=== PATIENT | female | born 1935 | race Caucasian/White ===

== ENCOUNTER 2017-03-15 19:20 | Inpatient (IN) | payer MEDICARE, OTHER ==
--- NOTE | ~2017-03-15 | DS ---
Unit #: [id number] #: [id number] Patient: WILVER BINGHAM [id number] [address] [address] [id number] I MR#: [id number] NAME: WILVER BINGHAM ROOM: 467 Age: 81 Sex: F Admission Date: 03/16/2017 : 1935 Discharge Date: Attending Physician: Antonieta Goel M.D. Primary Care Physician: No Primary Care Physician DISCHARGE SUMMARY DISCHARGE DIAGNOSES 1. Right foot ulcer, no osteomyelitis. 2. Severe peripheral vascular disease with right ischemic foot. 3. Urinary tract infection with Proteus. 4. Alzheimer dementia. 5. Diabetes mellitus type 2, controlled. 6. Hypothyroidism. 7. Chronic obstructive pulmonary disease, stable. 8. On chronic anticoagulation, Eliquis. 9. History of transient ischemic attacks. 10. (1) artery disease, Doppler showing 50% to 60% stenosis on the right side and less than 50% stenosis on the left carotid. 11. Stress test negative in February 2015. 12. History of previous right lower extremity bypass procedure. 13. Right hip nailing. CONSULTATIONS 1. Dr. North. 2. Dr. Palafox. 3. Dr. Mackenzie. PROCEDURES None. DIAGNOSTIC STUDIES LABORATORY: Sodium 142, potassium 3.7, and creatinine 1. WBC 7.9, hemoglobin 12.9, and platelets 227. Blood cultures negative. C reactive protein 0.9. Sedimentation rate 33. Urine cultures are growing Proteus mirabilis. Lactic acid 0.8. IMAGING: CT of right foot without contrast shows no bony destruction. Soft tissue wound along the medial margin of the great toe. No underlying soft tissue gas. No edema. Old healed fracture of the midshaft of fourth metatarsal present. Bilateral ankle brachial indices ultrasound shows severe peripheral vascular disease on the right lower extremity. ALLERGIES Aricept. DISCHARGE MEDICATIONS 1. Lactulose 20 g p.o. at bedtime. 2. Neurontin 300 at bedtime. Unit #: [id number] #: [id number] Patient: WILVER BINGHAM 3. Eliquis 2.5 mg p.o. b.i.d. 4. Zoloft 25 at bedtime. 5. Glucagon 1 mg IV p.r.n. hypoglycemia. 6. Norvasc 10 mg daily. 7. Milk of magnesia 30 mL p.r.n. constipation. 8. Keflex 500 p.o. 4 times daily. Stop date 03/29/2017. 9. Linzess 145 mcg p.o. daily. 10. Lipitor 40 daily. 11. Levemir 17 units subcu. b.i.d. 12. NovoLog low dose sliding scale a.c. and h.s. 13. NovoLog 7 units subcu. 3 times daily before meals. 14. Alendronate 70 mg p.o. weekly. 15. Florastor 250 p.o. b.i.d. 16. Doxycycline 100 mg p.o. b.i.d. Stop date 03/29/2017. 17. Levothyroxine 275 mcg p.o. daily. 18. Vitamin D2 50,000 units p.o. weekly. HOSPITALIZATION COURSE This is an 81-year-old admitted because of right foot wound. Right foot ulcer: No osteomyelitis with severe peripheral vascular disease. Patient was initially started on IV vancomycin and Zosyn. CT of the right foot without contrast shows no bony involvement. Blood cultures negative. Patient seen by infectious disease, orthopedics, and vascular. Infectious disease doctor recommended p.o. antibiotics. No osteomyelitis. Patient will be continued on Keflex and Doxycycline. Stop date 03/29/2017. Severe peripheral vascular disease: Patient is seen by Dr. North. According to him, patient needs to continue with conservative management. Patient is not a candidate for amputation. Patient will follow Dr. North as an outpatient. Alzheimer dementia with confusion: Continue with supportive care. Diabetes mellitus with peripheral neuropathy: Continue with Levemir. Patient is on Neurontin. Hypertension: Well controlled. History of TIAs: Continue with Eliquis. (1) discussed with Dr. Palafox and Dr. Mackenzie. Dr. Mackenzie is okay for the patient to continue with p.o. antibiotics. DISCHARGE INSTRUCTIONS 1. Patient will be discharged to rehab today. 2. Follow up with Dr. Palafox in two weeks' time. 3. Follow up with Dr. North in two weeks' time. Please note that the patient is not a candidate for amputation. Also, please note that patient could not lie straight for MRI to rule out osteomyelitis so CAT scan has been done. Discharge time taken is 32 minutes. Dictated by... Unit #: [id number] #: [id number] Patient: ZACHERYWILVER M.D. KJ/pc TD: 03/22/2017 12:32 JOB #: [id number] DISCHARGE SUMMARY Page 1 of 1 X Antonieta Goel MD X DISCHARGE SUMMARY
--- NOTE | ~2017-03-15 | US136 ---
[facility] A Service of [facility] & [facility] RADIOLOGY TEXT RESULTS PATIENT: WILVER BINGHAM LOCATION: [place] [address]- : 34 UNIT #: [id number] AGE: [address]: Antonieta Goel MD SEX: F ORDER DR: [id number] [facility] [address] [facility]. [place], [place] [address] [id number] I MR#: [id number] Acc #: [id number] NAME: WILVER BINGHAM : 1935 SEX: F STUDY DATE/TIME: 03/16/2017 9:13 UNIT: [facility] ROOM: [facility] STUDY DESCRIPTION: US U/L Ext Art Study Ltd Bil Attending Physician: Antonieta Goel M.D. Ordering Physician: Kolton North M.D. Primary Care Physician: Leila Omalley A.P.R.N. MEDICAL IMAGING REPORT This report is preliminary unless electronic signature is present EXAM Bilateral ankle-brachial indices HISTORY Peripheral vascular disease, absent pulses. FINDINGS Waveforms are monophasic and blunted at the ankle levels bilaterally. The right brachial pressure is 169, left brachial pressure is 149. On the right side, dorsalis pedis is 76, posterior tibial is 65, great toe is 32 for a right ankle-brachial index of 0.45. On the left side, posterior tibial pressure is 87, dorsalis pedis 91, great toe is 40 for a left ankle-brachial index of 0.54. IMPRESSION Severe peripheral vascular disease is seen in the right lower extremity with ankle-brachial index of 0.45. Vtjfgiot-yj-ropopv peripheral vascular disease is seen in the left lower extremity with ankle-brachial index of 0.54. Dictated by... Kolton North M.D. THIS IS AN ELECTRONICALLY VERIFIED REPORT Kolton North M.D. at 03/21/2017 4:08 PM /pineda TD: 03/16/2017 23:09 JOB #: [id number] [facility] A Service of [facility] & [facility] RADIOLOGY TEXT RESULTS PATIENT: WILVER BINGHAM LOCATION: [place] [address] : 34 UNIT #: [id number] AGE: [address]: Antonieta Goel MD SEX: F ORDER DR: MEDICAL IMAGING REPORT Page 1 of 1 COPY
--- NOTE | ~2017-03-15 | EKG ---
PATIENT: WILVER BINGHAM UNIT #: [id number] Ventricular Rate: 78 BPM Atrial Rate: 78 BPM P-R Interval: 124 ms QRS Duration: 74 ms Q-T Interval: 404 ms QTC Calculation(Bezet): 460 ms P [place]: 81 degrees Calculated R [place]: 60 degrees Calculated T [place]: 154 degrees Diagnosis Line: Normal sinus rhythm Diagnosis Line: ST and T wave abnormality, consider anterolateral Diagnosis Line: ischemia Diagnosis Line: Abnormal ECG Diagnosis Line: When compared with ECG of 20-JUL-2015 05:48, Diagnosis Line: Nonspecific T wave abnormality, improved in Diagnosis Line: Inferior leads Diagnosis Line: Confirmed by EVA DANIEL MD ([id number]) on Diagnosis Line: 03/18/2017 9:52:33 AM INTERPRETING : JOHNY
--- NOTE | ~2017-03-15 | CO ---
Unit #: [id number] #: [id number] Patient: WILVER BINGHAM [id number] [address] [place], [place] [address] [id number] Jenniffer MR#: [id number] NAME: WILVER BINGHAM. ROOM: 467 Age: 81 Sex: F Admission Date: 03/16/2017 : 1935 Attending Physician: Antonieta Goel M.D. Primary Care Physician: Primary Care Physician No CONSULTATION REPORT REQUESTING PHYSICIAN Dr. Goel. REASON FOR CONSULTATION Antibiotic recommendation for possible osteomyelitis of the right great toe in the setting of severe peripheral vascular disease, her amputation is being refused by the family. HISTORY OF PRESENT ILLNESS This is an 81-year-old white female with advanced dementia, severe peripheral vascular disease, who was admitted with a necrotic wound on the right foot. She lives in a care home and the wound appears to be chronic, it is not covered with an eschar. She underwent vascular evaluation, which showed ALEJANDRO of 0.45. Amputation was recommended, but both Surgery and family are hesitant to do amputation because of severe peripheral vascular disease and present medical status. No imaging studies have been performed to document presence of osteomyelitis. I was asked to see for antibiotic recommendations since surgery is not a possibility. Incidentally, noted to have positive urine culture without any symptoms and is currently on Zosyn and vancomycin to cover for both UTI and for possible osteomyelitis. The patient is pleasantly confused. She is not in any distress. She does not appear to have any fever or chills. No signs of systemic sepsis are noted. PAST MEDICAL HISTORY Severe peripheral vascular disease, recent right lower extremity bypass surgery with no apparent benefit, history of hypertension, hyperlipidemia, peripheral neuropathy, diabetes, hypothyroidism, previous TIA, COPD, carotid artery disease, dementia, right hip nailing, back surgery, and lithotripsy. ALLERGIES Aricept. MEDICATIONS residential medications; Fosamax, Synthroid, Linzess, NovoLog, vitamin, Eliquis, Zoloft, lactulose, Lipitor, Norvasc, Neurontin, milk of magnesium, glucagon, and Toujeo. In the hospital, she is on vancomycin, Saccharomyces boulardii, Norvasc, Lipitor, lactulose, Zoloft, vitamin D, Linzess, Neurontin, levothyroxine, NovoLog, Levemir, Zosyn, vancomycin, and milk of magnesia. PERSONAL HISTORY Unit #: [id number] #: [id number] Patient: WILVER BINGHAM The patient lives in a care home. No history of alcohol, drug, or tobacco abuse at the present time. Although, there is a history of smoking in the past. SYSTEMIC REVIEW Unable to obtain. Chart was reviewed. Discussions were held with the nursing staff and Dr. Goel. Pertinent findings are listed in history of present illness. PHYSICAL EXAMINATION GENERAL: Reveals a pleasantly confused, elderly white female, who is awake and alert, in no acute distress. VITAL SIGNS: Stable. Temperature is 98, pulse 90, respirations 16, blood pressure 160/83. No fever was documented throughout this admission. HEENT: Her oral hygiene is poor. Several teeth are missing. NECK: Supple. She looks somewhat pale. LUNGS: Clear to percussion and auscultation. HEART: Sounds are normal. There are no murmurs. ABDOMEN: Obese, soft, and nontender. There is no organomegaly or ascites. Bowel sounds normal. NEUROLOGIC: She is intact, able to move all 4 extremities, but she is mentally confused due to advanced dementia. EXTREMITIES: Lower extremities examination reveals no palpable pulses. There is an eschar on the medial aspect of the right great toe, which covers most of the great toe medially. There is evidence of neuropathy. Absent focus. There is no drainage noted. Some erythema on the great toe was noted as well. DIAGNOSTIC STUDIES LABORATORY RESULTS: Urine culture, Proteus with new evidence of pyuria, but the patient has no symptoms of UTI. BMP is unremarkable. White count is 9.7, hemoglobin 13.4, and platelets 187. Differential count is normal. Blood cultures negative. Arterial study of the right lower extremity shows severe peripheral vascular disease with ALEJANDRO of 0.45 on the right and 0.54 on the left. X-ray of the foot shows soft tissue ulcer seen in medial aspect of the right great toe at the level of the interphalangeal joint. Small amount of cortical irregularity seen at the distal aspect of the proximal phalanx, but no bone destruction. There is evidence of bone demineralization, some soft tissue swelling. IMPRESSION Main issue is ischemic ulcer on the right foot due to severe peripheral vascular disease with suspicion for underlying osteomyelitis. Osteomyelitis is not confirmed, it is just being presumed, and ID is being asked to recommend antibiotics for osteomyelitis. At this time, the risk of antibiotic therapy should be carefully get against possible benefit in the view of severe peripheral vascular disease. Her osteomyelitis has not been confirmed. Treating her with 6 to 8 weeks of IV antibiotics can have more risks than benefits. Moreover with severe peripheral vascular disease, the osteomyelitis cure may not be possible. RECOMMENDATIONS I will recommend to do a CT of the right foot without contrast to look for any evidence of obvious osteomyelitis along with inflammatory markers with CRP and sedimentation rate and make the further plans. Dictated by... Unit #: [id number] #: [id number] Patient: WILVER BINGHAM M.D. TM/eva TD: 03/21/2017 14:25 JOB #: [id number] CONSULTATION REPORT Page 1 of 1 X Jb Mackenzie MD CONSULTATION REPORT
--- NOTE | ~2017-03-15 | CO ---
Unit #: [id number] #: [id number] Patient: WILVER BINGHAM [id number] [address] [place], [place] [address] [id number] I MR#: [id number] NAME: WILVER BINGHAM ROOM: 467 Age: 81 Sex: F Admission Date: 03/16/2017 : 1935 Attending Physician: Antonieta Goel M.D. Primary Care Physician: Leila Omalley A.P.R.N. Consultation Date: 03/16/2017 CONSULTATION REPORT CHIEF COMPLAINT Necrotic wound over her right hallux. HISTORY OF PRESENT ILLNESS An 81-year-old white female with history of dementia, peripheral vascular disease, and adult onset diabetes mellitus, presents with a necrotic wound of her right hallux. The patient is a resident at [facility], where it was noticed that her ulcer had increased in size, became more painful and has had increased drainage. She was admitted into the emergency room last night and x-ray revealed right foot soft tissue swelling and cortical irregularity of her first digit. She is also being treated for UTI with Rocephin. Vascular has seen and has ordered new ABIs as her most recent one from 2016 and revealed 0.39 right and 0.52 left. Vascular is also treating her cellulitis of her right foot. PAST MEDICAL HISTORY Peripheral vascular disease, status post right lower extremity bypass surgery at [facility]; hypertension; hyperlipidemia; adult onset diabetes mellitus with peripheral neuropathy; hypothyroidism; previous TIAs; COPD; carotid artery disease; dementia; Cardiolite stress test in 2014; previous right lower extremity bypass procedure; right hip nailing; back surgery; and lithotripsy. ALLERGIES Aricept. MEDICATIONS [facility] medications; Fosamax 70 mg daily, Synthroid 0.2 mg daily, Linzess 145 mcg daily, NovoLog 7 units t.i.d. with meals, vitamin D2 50,000 units each week, Eliquis 2.5 mg b.i.d., Zoloft 25 mg q.h.s., lactulose 30 mL q.h.s. and p.r.n., Lipitor 40 mg q.h.s., Norvasc 10 mg daily, Neurontin 300 mg q.h.s. p.r.n., milk of magnesia, Glucagon, Toujeo 34 units subcu daily. FAMILY HISTORY Noncontributory. SOCIAL HISTORY Lives at [facility] and under the care of Dr. Berman. Previous tobacco smoker, no alcohol use. REVIEW OF SYSTEMS Unable to obtain today. Unit #: [id number] #: [id number] Patient: WILVER BINGHAM PHYSICAL EXAMINATION GENERAL: No acute distress, not oriented. VITAL SIGNS: Within normal limits. HEART: Regular rate and rhythm. LUNGS: Nonlabored breathing. MUSCULOSKELETAL: Right lower extremity; weakly palpable dorsalis pedis and posterior tibialis pulses, necrotic left hallux wound with blister, no drainage currently, wound measures 0.5 x 1 cm, ischemic areas of fourth and fifth toe is present. Foot warm to touch and erythematous, neurovascularly intact. NEUROLOGIC: Cranial nerves intact. PSYCHIATRIC: Mood and affect normal. DIAGNOSTIC STUDIES IMAGING STUDIES: X-ray of the right foot; cortical irregularity at the distal aspect of proximal phalanx, clinical evidence of cellulitis. LABORATORY RESULTS: BMP within normal limits. Glucose of 104, lactic acid 0.8. CBC within normal limits. PT of 10.5, INR of 1.0, PTT 29.6. UA: Leukocyte esterase 3+, protein 2+, blood 2+. ASSESSMENT AND PLAN An 81-year-old white female with necrotic right hallux wound. Previous x-ray of the right foot revealed clinical evidence suggestive of osteomyelitis; we will order an MRI without contrast of her right foot today. ABIs already ordered per Vascular. To continue all antibiotic treatment. We will continue to follow and address further treatment, pending ABIs and MRI. Dictated by... Jenifer Pierre PA-C for Aida Luong/eva TD: 03/17/2017 06:07 JOB #: [id number] CONSULTATION REPORT Page 1 of 1 X JENIFER PIERRE X CONSULTATION REPORT
--- NOTE | ~2017-03-15 | CT95 ---
[facility] A Service of [facility] & [facility] RADIOLOGY TEXT RESULTS PATIENT: WILVER BINGHAM LOCATION: [facility] 46-01 : 34 UNIT #: [id number] AGE: [address]: Antonieta Goel MD SEX: F ORDER DR: [id number] [place] [id number] [place], [place] [address] [id number] I MR#: [id number] Acc #: [id number] NAME: WILVER BINGHAM : 1935 SEX: F STUDY DATE/TIME: 03/21/2017 18:47 UNIT: [facility] ROOM: [facility] STUDY DESCRIPTION: CT Lower Ext Rt Wo Cont Attending Physician: Antonieta Goel M.D. Ordering Physician: Jb Mackenzie M.D. Primary Care Physician: Primary Care Physician No MEDICAL IMAGING REPORT This report is preliminary unless electronic signature is present EXAM CT right foot without contrast HISTORY Redness and pain in foot and swelling for approximately [address] exam was performed with one or more of the following radiation dose reduction techniques: automatic exposure control, adjustment of mA and/or kV according to patient size, and iterative reconstruction. FINDINGS CT right foot without contrast demonstrates soft tissue wound along the medial margin of the distal great toe at the level of the IP joint. Underlying soft tissue thickening, likely edema or inflammation. No underlying bone destruction. No soft tissue gas. No drainable fluid collection is identified. Generalized demineralization. Mild degenerative changes in the IP joint of the great toe and at the first MTP joint. Old healed fracture midshaft fourth metatarsal. No acute fracture. Small posterior and plantar calcaneal spurs. IMPRESSION 1. No bone destruction is identified. No fracture. 2. Soft tissue wound along the medial margin of the great toe at the level of the IP joint. No underlying soft tissue gas or fluid collection. However, there is soft tissue thickening along the medial margin of the great toe which could be due to edema or cellulitis. 3. Old healed fracture of the midshaft of the fourth metatarsal. 4. Mild degenerative changes. Generalized demineralization. Dictated by... [facility] A Service of [facility] & [facility] RADIOLOGY TEXT RESULTS PATIENT: WILVER BINGHAM LOCATION: [place] [address]01 : 34 UNIT #: [id number] AGE: [address]: Antonieta Goel MD SEX: F ORDER DR: Lorenzo Whitman M.D. THIS IS AN ELECTRONICALLY VERIFIED REPORT Lorenzo Whitman M.D. at 03/22/2017 5:29 PM SUSY/noel TD: 03/22/2017 01:38 JOB #: [id number] MEDICAL IMAGING REPORT Page 1 of 1 COPY
--- NOTE | ~2017-03-15 | CO ---
Unit #: [id number] #: [id number] Patient: WILVER BINGHAM [id number] [address] [place], [place] [address] [id number] I MR#: [id number] NAME: WILVER BINGHAM ROOM: 467 Age: 81 Sex: F Admission Date: 03/16/2017 : 1935 Attending Physician: Antonieta Goel M.D. Primary Care Physician: Leila Omalley A.P.R.N. Consultation Date: 03/16/2017 CONSULTATION REPORT REASON FOR CONSULTATION Infection and wound and peripheral vascular disease, right lower extremity. HISTORY This is an 81-year-old female admitted [facility] with a history of worsening wound on the right foot. No history was available yesterday when patient was initially seen. Subsequently, I have spoken to the patient's liojbbla-ej-oor. Patient has had right femoral to anterior tibial artery bypass with distal flow by me in February 2015 and has never followed up. At that time, there was a wound on the right great toe. She was minimally ambulant at that time. Subsequently because of insurance issues, she was followed up with Dr. Valentin at [place]. Apparently, the wound was stable but never improved completely. Within the last year, the patient has become bedridden and was admitted to the jail. From the reports of the doctor's office from November 2016, it appears that the foot was doing well but the graft was known to be occluded. Conservative management was recommended at that time and amputation only if the foot got infected or worse. Apparently in the last few days, the foot wound has worsened and the patient was sent to the emergency room. There is no history of fever. The patient is confused and disoriented and does not give any history because of dementia. PAST MEDICAL HISTORY Basically taken from the chart: 1. History of hypertension. 2. Hyperlipidemia. 3. Previous TIAs. 4. COPD. 5. Carotid stenosis, less than 60% on the right and less than 50% on the left. 6. History of dementia. 7. Lower extremity peripheral vascular disease as described above. 8. Right hip surgery. 9. Back surgery. 10. Lithotripsy. ALLERGIES Aricept. MEDICATIONS halfway medications: 1. Fosamax 70 mg daily. 2. Synthroid 0.2 mg daily. Unit #: [id number] #: [id number] Patient: WILVER BINGHAM 3. Linzess 145 mcg daily. 4. NovoLog insulin. 5. Vitamin D. 6. Eliquis 2.5 b.i.d. 7. Zoloft 25 daily. 8. Lactulose. 9. Lipitor 40 mg daily. 10. Norvasc 10 mg daily. 11. Neurontin 300 p.r.n. FAMILY HISTORY Negative. SOCIAL HISTORY She lives in a jail and has smoked in the past, but does not smoke now and does not drink. REVIEW OF SYSTEMS Not possible as patient is disoriented and confused. PHYSICAL EXAMINATION GENERAL: On examination, patient is awake but confused and not responsive to questions. She keeps her eyes closed most of the time. VITAL SIGNS: Temperature is normal at 98, pulse is 90, respirations 18, blood pressure 150/64. HEENT: Head and neck exam reveals no pallor, icterus, cyanosis. No neck masses or bruits. CHEST: Clear. CARDIOVASCULAR: S1, S2 with muffled heart sounds. No murmurs. ABDOMEN: Soft and nontender. No masses. No pulsatile swelling. EXTREMITIES: Lower extremities reveal femoral pulses bilaterally. Right femoral pulse is slightly weaker. Popliteal and pedal pulses are absent bilaterally. Right foot has erythema in the distal half. Large blister with the wound necrosis is seen on the medial aspect of the right great toe, extending onto the MTP joint. There are dark ischemic areas which are dry on the fourth and fifth toes in the lateral aspect of the foot with no open wounds there. DIAGNOSTIC STUDIES LABORATORY: White cell count is normal at 8. IMAGING: X-ray shows cortical irregularity of the first digit. Vein mapping done in February 2015 had shown adequate saphenous vein on the left side and the right greater saphenous vein had been harvested. IMPRESSION 1. Severe peripheral vascular disease with right lower extremity ischemia and gangrene and wound on the great toe. 2. Cellulitis of the right foot. 3. Significant dementia. RECOMMENDATIONS I have discussed with the patient's anskoloq-wa-koy over the phone. Because of her advanced age and immobility, revascularization of the lower extremity would not be advised. If the foot worsens, especially with the infection, she may require a right above-knee amputation. However, conservative management with comfort measures is also an option. All this Unit #: [id number] #: [id number] Patient: WILVER BINGHAM was discussed and they will make a decision. Meanwhile, recommend continuing antibiotics and monitoring the patient. Dictated by... Aida Newton TD: 03/18/2017 08:39 JOB #: [id number] CONSULTATION REPORT Page 1 of 1 X Kolton North MD X CONSULTATION REPORT
--- NOTE | ~2017-03-15 | CR127 ---
[facility] A Service of [facility] & [facility] RADIOLOGY TEXT RESULTS PATIENT: WILVER BINGHAM LOCATION: [facility] [address] : 34 UNIT #: [id number] AGE: [address]: Antonieta Goel MD SEX: F ORDER DR: [id number] [facility] [address] [place], [place] [address] [id number] MR#: [id number] Acc #: [id number] NAME: WILVER BINGHAM : 1935 SEX: F STUDY DATE/TIME: 03/15/2017 21:14 UNIT: CEDOF ROOM: 82131 STUDY DESCRIPTION: CR Foot Complete Min 3 View Rt Attending Physician: Antonieta Goel M.D. Ordering Physician: Hamida Blair M.D. Primary Care Physician: Darren PotterPJeromyRTeresita MEDICAL IMAGING REPORT This report is preliminary unless electronic signature is present EXAM Right foot HISTORY Possible trauma to right foot but patient is confused. There is redness, swelling, open sore near big toe on the top of the foot. Patient indicates symptoms for a few days, but not entirely sure given her confusion. Also unclear if there is an injury history. COMMENT Four films of the right foot submitted for review. There is a prior study from 02/22/2015. Bones are demineralized. There is chronic thick periosteal reaction seen fourth metatarsal. There is arthritis probably at the interphalangeal joint and I believe there is a soft tissue ulcer at this level medially. There is no radiopaque foreign body appreciated. Subtle cortical irregularity seen at the distal end of the first proximal phalanx. No clear bone destruction. If there is clinical concern for osteomyelitis. Correlation with an MRI would be recommended if the patient is a candidate. The soft tissue changes are suggestive of cellulitis. There is some soft tissue swelling adjacent to the ulcer. No obvious acute fracture allowing for the demineralization. IMPRESSION 1. There is a soft tissue ulcer seen medial aspect of the right great toe at the level of the interphalangeal joint. Small amount of cortical irregularity is seen at the distal aspect of the proximal phalanx first digit but no clear bone destruction. If there is clinical evidence for osteomyelitis and the patient is a candidate, she is best assessed with MRI. 2. The bones are quite demineralized. I believe there is soft tissue swelling likely in the region of the ulcer and please correlate for STS. [facility] A Service of [facility] & [facility] RADIOLOGY TEXT RESULTS PATIENT: WILVER BINGHAM LOCATION: [facility] 46-01 : 34 UNIT #: [id number] AGE: [address]: Antonieta Goel MD SEX: F ORDER DR: clinical evidence of cellulitis. Dictated by... Andreia Bang M.D. THIS IS AN ELECTRONICALLY VERIFIED REPORT Andreia Bang M.D. at 03/16/2017 2:27 PM Zuleika TD: 03/16/2017 09:08 JOB #: [id number] MEDICAL IMAGING REPORT Page 1 of 1 COPY
--- NOTE | ~2017-03-15 | HP ---
Unit #: [id number] #: [id number] Patient: WILVER BINGHAM [id number] [address] [place], [place] [address] [id number] MR#: [id number] NAME: WILVER BINGHAM. ROOM: 85796 Age: 81 Sex: F Admission Date: 03/16/2017 : 1935 Attending Physician: Leann Candelario M.D. Primary Care Physician: Leila Omalley A.P.R.N. HISTORY AND PHYSICAL CHIEF COMPLAINT Severe peripheral vascular disease with necrotic wound over the right foot. HISTORY This pleasant, 81-year-old female with dementia, peripheral vascular disease, and AODM is admitted for a necrotic wound over the right foot. Patient lives at [facility]. She has a chronic wound over her right first toe. At the half-way, however, the wound increased in size, has become more painful, and is draining. She was brought to the emergency department last evening afebrile. She has a necrotic appearing wound and ulcer over the first great toe with erythema of the right foot. No palpable or Dopplerable pulse. However, the foot is warm. X-ray shows soft tissue swelling and cortical irregularity of the first digit. She is also noted to have a UTI and was given Rocephin. The patient herself is confused and cannot add to her history. She was previously admitted to [facility] 2016. She was felt to have a failed fem-pop bypass of the right leg, severe peripheral vascular disease on the right with an ALEJANDRO of 0.39. Left ALEJANDRO was 0.55. Patient is anticoagulated on Eliquis. PAST MEDICAL HISTORY 1. Peripheral vascular disease, status post right lower extremity bypass surgery at [facility]. Please see above details for recent ABIs. 2. Hypertension. 3. Hyperlipidemia. 4. AODM with peripheral neuropathy. 5. Hypothyroidism. 6. Previous TIAs. 7. COPD. 8. Carotid artery disease with Dopplers revealing 50% to 60% stenosis on the right and less than 50% stenosis on the left. 9. Dementia. 10. Cardiolite stress test performed 02/2015, which was negative for ischemia. 11. Previous right lower extremity bypass procedure. 12. Right hip nailing. 13. Back surgery. 14. Lithotripsy. ALLERGIES Aricept. RETIREMENT MEDICATIONS Unit #: [id number] #: [id number] Patient: WILVER BINGHAM 1. Fosamax 70 mg daily. 2. Synthroid 0.2 mg daily. 3. Linzess 145 mcg daily. 4. NovoLog 7 units t.i.d. with meals. 5. Vitamin D2 50,000 units each week. 6. Eliquis 2.5 mg b.i.d. 7. Zoloft 25 mg q.h.s. 8. Lactulose 30 mL q.h.s. and p.r.n. 9. Lipitor 40 mg q.h.s. 10. Norvasc 10 mg daily. 11. Neurontin 300 mg q.h.s. p.r.n. 12. MOM. 13. Glucagon. 14. Toujeo 34 units subcu. daily. FAMILY HISTORY Noncontributory given patient's age. SOCIAL HISTORY The patient lives at [facility] under the care of Dr. Gonzalez Berman. Previously smoked tobacco. Does not drink alcohol. REVIEW OF SYSTEMS Impossible to obtain as patient is pleasantly confused. PHYSICAL EXAMINATION GENERAL APPEARANCE: Pleasantly confused, 81-year-old female currently in no acute distress. VITAL SIGNS: Temperature 98, pulse 92, respirations 18, blood pressure 151/64, and O2 saturation 96% on room air. HEENT: Eyes: PERRLA. Extraocular muscles are intact. Pharynx is benign. NECK: Supple without adenopathy or thyromegaly. CHEST: Clear. CARDIAC: Normal S1 and S2 without S3, S4, or murmur. ABDOMEN: Bowels sounds are present. No hepatosplenomegaly, tenderness, or masses. EXTREMITIES: No pedal edema. Pedal pulses are not palpable and Doppler could not picker and packer the pulse in the right foot. The right foot is warm with right mid and distal erythema with a large necrotic appearing wound over the medial aspect of the first great toe with a wound. NEUROLOGIC: Patient is pleasantly confused. Oriented to person. DIAGNOSTIC STUDIES ADMISSION LABS: Hematocrit is 44.2 and normal white count, platelet count, and coags. SMA-12: Glucose 172, BUN 26, and lactic acid normal. Urinalysis: Positive leukocyte esterase with 25-50 red cells, innumerable white cells, 4+ bacteria, and no squamous cells. IMAGING: X-ray of the right foot: Soft tissue swelling, first digit, with cortical irregularity of the first digit. ASSESSMENT 1. Severe peripheral vascular disease. Patient has failed fem-pop bypass, right foot, with necrotic wound and ulcer and now with increase in the wound and drainage of the foot. Patient will likely need amputation. 2. Dementia. Unit #: [id number] #: [id number] Patient: WILVER BINHGAM 3. AODM. 4. Hypothyroidism. 5. COPD. 6. Urinary tract infection. 7. Patient is anticoagulated with Eliquis. PLANS 1. IV fluids. 2. Vancomycin and Zosyn, which could be later discontinued if an amputation was performed. 3. Vascular and orthopedic surgeon to see. 4. Obtain EKG. 5. Hold Eliquis as patient will likely need surgery. 6. Florastor. Dictated by Aida Latham/ramakrishna TD: 03/16/2017 05:33 JOB #: [id number] HISTORY AND PHYSICAL Page 1 of 1 X Leann Candelario MD HISTORY AND PHYSICAL
[~2017-03-15 19:20] MED LIST: ACTOS PO; ALBUTEROL17 GM INH; AMLODIPINE BESY10 MG PO; AMLODIPINE PO; ARICEPT5 M1; BINOSTO70 MG PO; CLEOCIN PO; CLOPIDOGREL BIS75 MG PO; CLOPIDOGREL PO; CLOPIDOGREL75 MG PO; COLACE PO; COUMADIN5 MG PO; COUMADIN7.5 MG PO; ENABLEX7.5 MG PO; FAMOTIDINE PO; FLORANEX T1 TAB.CHE3 PO; GABAPENTIN PO; GABAPENTIN300 M2 PO; GABAPENTIN300 MG PO; HYDROCODONE/APA1 T16 PO; KEFLEX500 M1 PO; LANTUS INSULIN SQ; LANTUS100 U/ML SUBQ; LANTUS100 UNITS/ SQ; LEVAQUIN PO; LEVOTHYROXINE PO; LEVOXYL125 MC1 PO; LIPITOR40 MG PO; LISINOPRIL PO; LISINOPRIL20 MG PO; LORTAB 5-325 M1 EACH PO; LORTAB 5/500 TA1 TA2; MACROBID100 M1 PO; MEDROL DOSEPAK4 MG; MELOXICAM15 MG PO; MIRALAX17 GM PO; MOBIC; MOBIC15 MG PO; NAMENDA XR PO; NAMENDA XR14 MG PO; NAMENDA XR28 MG PO; NAMENDA5 MG PO; NITROFURANTOIN100 M3 PO; NO MED LIST; NORVASC10 MG PO; NOVOLOG100 U/M2; PLAVIX PO; PREDNISONE PO; PRINIVIL20 M1 PO; PROAIR HFA; PROAIR HFA8.5 GM IH; ROBAXIN500 MG PO; SERTRALINE HCL50 MG PO; SYNTHROID PO; SYNTHROID0.1 MG PO; TAMIFLU75 M1 PO; TIROSINT100 MCG PO; TYLENOL #3 PO; VITAMIN D 2 PO; VITAMIN D50000 UNIT PO; ZOCOR PO; ZOCOR10 MG PO; ZOFRAN ODT4 MG PO; ZOFRANODT PO; [UNRECOGNIZED DRUG - OTHER] TOP; [UNRECOGNIZED DRUG - REMARK]; [UNRECOGNIZED DRUG - REMARK]
[2017-03-15 20:30] LABS: URINE SOURCE CATH
[2017-03-15 20:34] LABS: URINE APPEARANCE TURBID; URINE BILIRUBIN NEG (NEG); URINE BLOOD 2+ (NEG); URINE COLOR YELLOW; URINE GLUCOSE NEG (NEG); URINE KETONE NEG (NEG); URINE LEUKOCYTE ESTERASE 3+ (NEG); URINE NITRATE NEG (NEG); URINE PH 6.5 (5-8); URINE PROTEIN 2+ (NEG); URINE SPECIFIC GRAVITY 1.019 (1.003-1.035)
[2017-03-15 20:37] LABS: CULTURE INDICATED? YES; URBCS1 AUWI 25-50 /[HPF] (0-2); URINE BACTERIA AUWI 4+ (NEGATIVE); URINE SQUAMOUS EPITHELIAL CELL NONE SEEN /[HPF]; UWBCS1 AUWI INNUM (0-5)
[2017-03-15] MEDS ORDERED: ACETAMINOPHEN650 M4 PO (20:39)
[2017-03-15] MEDS ORDERED: NORVASC2.5 MG PO (20:40)
[2017-03-15] MEDS ORDERED: ALENDRONATE SOD70 M1 PO (20:44)
[2017-03-15] MEDS ORDERED: LINZESS145 MCG PO (20:45)
[2017-03-15] MEDS ORDERED: LEVOXYL200 MCG PO (20:45)
[2017-03-15] MEDS ORDERED: NOVOLOG100 UNIT/1 SUBQ (20:46)
[2017-03-15] MEDS ORDERED: SERTRALINE HCL25 M2 PO (20:47)
[2017-03-15] MEDS ORDERED: VITAMIN D250000 UNIT PO (20:47)
[2017-03-15] MEDS ORDERED: ELIQUIS2.5 MG PO (20:47)
[2017-03-15] MEDS ORDERED: LIPITOR40 MG PO (20:48)
[2017-03-15] MEDS ORDERED: LACTULOSE10 GM/15 M PO ×2 (20:48→20:50)
[2017-03-15] MEDS ORDERED: AMLODIPINE BESY10 MG PO (20:49)
[2017-03-15] MEDS ORDERED: GABAPENTIN300 M2 PO (20:49)
[2017-03-15] MEDS ORDERED: MILK OF MAGNESIA PO (20:51)
[2017-03-15] MEDS ORDERED: GLUCAGEN1 MG (20:51)
[2017-03-15] MEDS ORDERED: TOUJEO SOL300 UNIT/1 SUBQ (20:52)
[2017-03-15 20:55] LABS: PARTIAL THROMBOPLASTIN TIME 29.6 SECONDS (23.5-31.3); PROTHROMBIN TIME (PATIENT) 10.5 SECONDS (9.6-11.5)
[2017-03-15 21:00] LABS: BASOPHIL# 0.1 X10e3 (0-0.3); BASOPHIL% 1.1 % (0-2.5); DIFF IND NO; EOSINOPHIL# 0.2 X10e3 (0-0.7); EOSINOPHIL% 1.8 % (0.0-7.0); HEMATOCRIT 44.2 % (35.0-45.0); HEMOGLOBIN 14.1 gm/dL (12.0-16.0); LYMPHOCYTE# 2.7 X10e3 (1.0-3.5); LYMPHOCYTE% 30.2 % (17.0-45.0); MEAN CELL VOLUME 88.4 FL (83-96); MEAN CORPUSCULAR HEMOGLOBIN 28.2 PG (28-34); MEAN CORPUSCULAR HGB CONC 31.9 g/dL (30-36); MEAN PLATELET VOLUME 10.2 FL (6.5-11.5); MONOCYTE# 0.8 X10e3 (0-1.0); MONOCYTE% 9.6 % (3.0-12.0); NEUTROPHIL# 5.1 X10e3 (1.5-7.1); NEUTROPHIL% 57.3 % (40-75); PLATELET COUNT 176 X10e3 (140-420); RED CELL DISTRIBUTION WIDTH 14.7 % (11.0-15.5); WHITE BLOOD COUNT 8.8 X10e3 (4.0-10.5)
[2017-03-16 00:03] LABS: ALBUMIN SERUM 3.7 g/dL (3.5-5.0); BILIRUBIN, DIRECT 0.1 mg/dL (0.0-0.2); BILIRUBIN,INDIRECT 0.7 mg/dL (0.0-0.9); BILIRUBIN,TOTAL 0.8 mg/dL (0.2-2.0); BUN/CREATININE RATIO 23.63; CALCIUM SERUM 9.3 mg/dL (8.4-10.2); CREATININE SERUM 1.1 mg/dL (0.6-1.4); GLOM FILT RATE Estimated 46.7 mL/min (>60); POTASSIUM 4.2 mmol/L (3.5-5.1); PROTEIN TOTAL SERUM 7.2 g/dL (6.0-8.3)
[2017-03-16 06:44] LABS: BUN/CREATININE RATIO 23.33; CREATININE SERUM 0.9 mg/dL (0.6-1.4); GLOM FILT RATE Estimated 59.6 mL/min (>60); POTASSIUM 4.1 mmol/L (3.5-5.1)
[2017-03-17 04:02] LABS: CALCIUM SERUM 8.9 mg/dL (8.4-10.2); GLOM FILT RATE Estimated 52.4 mL/min (>60); POTASSIUM 3.6 mmol/L (3.5-5.1)
[2017-03-18 03:32] LABS: BASOPHIL# 0.1 X10e3 (0-0.3); EOSINOPHIL# 0.2 X10e3 (0-0.7); EOSINOPHIL% 1.7 % (0.0-7.0); HEMATOCRIT 41.2 % (35.0-45.0); HEMOGLOBIN 13.4 gm/dL (12.0-16.0); LYMPHOCYTE# 2.3 X10e3 (1.0-3.5); LYMPHOCYTE% 23.6 % (17.0-45.0); MEAN CELL VOLUME 88.7 FL (83-96); MEAN CORPUSCULAR HEMOGLOBIN 28.7 PG (28-34); MEAN CORPUSCULAR HGB CONC 32.4 g/dL (30-36); MEAN PLATELET VOLUME 10.9 FL (6.5-11.5); MONOCYTE# 0.8 X10e3 (0-1.0); MONOCYTE% 8.3 % (3.0-12.0); NEUTROPHIL# 6.3 X10e3 (1.5-7.1); NEUTROPHIL% 65.4 % (40-75); PLATELET COUNT 187 X10e3 (140-420); RED BLOOD COUNT 4.65 X10e (3.90-5.30); RED CELL DISTRIBUTION WIDTH 14.3 % (11.0-15.5); WHITE BLOOD COUNT 9.7 X10e3 (4.0-10.5)
[2017-03-18 03:43] LABS: CALCIUM SERUM 8.8 mg/dL (8.4-10.2); GLOM FILT RATE Estimated 52.4 mL/min (>60); POTASSIUM 3.9 mmol/L (3.5-5.1)
[2017-03-18 03:52] LABS: DIFF IND NO
[2017-03-20 06:17] LABS: BUN/CREATININE RATIO 14.44; CREATININE SERUM 0.9 mg/dL (0.6-1.4); GLOM FILT RATE Estimated 59.6 mL/min (>60); POTASSIUM 3.8 mmol/L (3.5-5.1)
[2017-03-22 04:56] LABS: BASOPHIL# 0.1 X10e3 (0-0.3); BASOPHIL% 0.8 % (0-2.5); EOSINOPHIL# 0.3 X10e3 (0-0.7); EOSINOPHIL% 3.5 % (0.0-7.0); HEMATOCRIT 39.7 % (35.0-45.0); HEMOGLOBIN 12.9 gm/dL (12.0-16.0); LYMPHOCYTE# 2.7 X10e3 (1.0-3.5); LYMPHOCYTE% 34.2 % (17.0-45.0); MEAN CORPUSCULAR HGB CONC 32.5 g/dL (30-36); MONOCYTE# 0.7 X10e3 (0-1.0); MONOCYTE% 8.2 % (3.0-12.0); NEUTROPHIL# 4.2 X10e3 (1.5-7.1); NEUTROPHIL% 53.3 % (40-75); PLATELET COUNT 227 X10e3 (140-420); RED BLOOD COUNT 4.46 X10e (3.90-5.30); RED CELL DISTRIBUTION WIDTH 14.3 % (11.0-15.5); WHITE BLOOD COUNT 7.9 X10e3 (4.0-10.5)
[2017-03-22 04:59] LABS: DIFF IND NO
[2017-03-22 05:29] LABS: CALCIUM SERUM 9.1 mg/dL (8.4-10.2); GLOM FILT RATE Estimated 52.4 mL/min (>60); POTASSIUM 3.7 mmol/L (3.5-5.1)
== END 2017-03-22 15:25 | DRG 300 ==
LOC: CED 19:20 → C4C 03-16 03:00 → CEDOF 03-16 03:00 → C4C 03-16 03:09 → CED 03-16 03:09 → CEDOF 03-16 06:57 → C4C 03-16 10:31
PROVIDERS: Emergency Medicine; Internal Medicine; Nurse Practitioner Family
DX: I70.25 Atherosclerosis of native arteries of other extremities with ulceration (principal); N39.0 Urinary tract infection, site not specified; E11.42 Type 2 diabetes mellitus with diabetic polyneuropathy; E11.65 Type 2 diabetes mellitus with hyperglycemia; I65.23 Occlusion and stenosis of bilateral carotid arteries; L03.115 Cellulitis of right lower limb; J44.9 Chronic obstructive pulmonary disease, unspecified; I10 Essential (primary) hypertension; E78.5 Hyperlipidemia, unspecified; E03.9 Hypothyroidism, unspecified; Z86.73 Personal history of transient ischemic attack (TIA), and cerebral infarction without residual deficits; Z79.4 Long term (current) use of insulin; L97.519 Non-pressure chronic ulcer of other part of right foot with unspecified severity; Z79.01 Long term (current) use of anticoagulants; A49.8 Other bacterial infections of unspecified site; G30.9 Alzheimer's disease, unspecified; F02.80 Dementia in other diseases classified elsewhere, unspecified severity, without behavioral disturbance, psychotic disturbance, mood disturbance, and anxiety
CPT/HCPCS: 36415; 51701; 73630; 73700; 80048; 80076; 80202; 81003; 82947; 83605; 85025; 85610; 85652; 85730; 86140; 87040; 87086; 87088; 87186; 93005; 93922; 99285; J0696; J1815; J2060; J2543; J3370